=== PATIENT | male | born 1965 | race Caucasian/White ===

== ENCOUNTER 2025-09-18 13:17 | Outpatient (REF) | payer BC, SELFPAY ==
[2025-09-18 18:56] LABS: Alanine Aminotransferase 43 U/L (0-40); Albumin Level 4.8 g/dL (3.5-5.0); Alkaline Phosphatase 60 U/L (39-117); Anion Gap 15 (12-20); Aspartate Amino Transferase 33 U/L (5-37); Blood Urea Nitrogen 15 mg/dL (9-16); Calcium 8.9 mg/dL (8.4-10.2); Carbon Dioxide 28 mmol/L (22-29); Chloride 99 mmol/L (96-108); Cholesterol 179 mg/dL (<200); Estimated Glomerular Filt Rate > 60; HDL Cholesterol 36 mg/dL (>40); Potassium 3.5 mmol/L (3.3-5.1); Sodium 138 mmol/L (135-145); Total Protein 7.5 g/dL (6.5-8.0); Triglycerides 163 mg/dL (<150)
[2025-09-18 19:04] LABS: Folate 4.5 ng/mL (> or = 4.0); Vitamin B12 600 pg/mL (200-900)
== END 2025-09-18 13:18 | disposition home or self-care (01) ==
LOC: HO.WFDLDS 13:17
PROVIDERS: PCP Nurse Practitioner Family; Visit Provider Nurse Practitioner Family
DX: I10 Essential (primary) hypertension (principal); R68.2 Dry mouth, unspecified; E66.9 Obesity, unspecified; Q82.4 Ectodermal dysplasia (anhidrotic); Z09 Encounter for follow-up examination after completed treatment for conditions other than malignant neoplasm; Z76.89 Persons encountering health services in other specified circumstances; Z28.21 Immunization not carried out because of patient refusal; Z12.5 Encounter for screening for malignant neoplasm of prostate
CPT/HCPCS: 36415; 80053; 80061; 82306; 82607; 82746; 83036; 84153; 84443; 96127

== ENCOUNTER 2025-09-18 13:17 | Outpatient (AMB) | payer BC, SELFPAY ==
--- NOTE | 2025-09-18 13:24 | A.OFFPC_ITS ---
Vital Signs 09/18/25 13:39 09/18/25 14:11 Height 5 ft 10 in Weight 263 lb 8 oz BMI 37.8 BP 162/80 H 142/8 H Blood Pressure Location Rt brachial Rt brachial Position Sitting Sitting Respiration 14 Pulse 98 Pulse Source Pulse Oximeter Temp 97.2 F Temp Source Oral Pulse Oximetry (%) 96 Oxygen Delivery Method Room Air Intake Visit Reasons: ED follow up/ blood pressure Intake Note: New patient to establish care and ED follow up on htn Bulldozer Operator Required: No Allergies No Known Allergies Allergy (Verified 09/18/25 13:58) Medication List - Last Reviewed 09/18/25 by Stacia Mora MA amlodipine 5 mg PO DAILY hydrochlorothiazide 12.5 mg PO DAILY Tobacco use date assessed: 09/18/25 Dental Screening Dental Screen Date: 09/18/25 Did you have a dental visit in the last 12 months?: Yes Did you have a dental problem in the last 6 months where you did not have access to dental care?: No Was dental information given to patient?: Patient has dentist HPI HPI Comments History of Present Illness Details 60-year-old male with hypertension, obes ity, ectodermal dysplasia social: Surgery: ACL R Fhx: Mom CHF; Dad dementia, Brother bipolar; 2 children alive and well Health Maintenance: Colon PSA Tdap declined Flu declined Specialists: None History of Present Illness The patient is a 60-year-old male presenting to establish care and for management of hypertension. [facility] [place] last visit 2022 No records Essential Hypertension: - The patient has a history of hypertens ion and presented to the [facility] emergency room on July 27 for feeling off, where he was found to be hypertensive and mildly hypoxic. - His ER workup was negative, and he was discharged on amlodipine and hydrochlorothiazide. - He reports taking his medications as p rescribed, but his home blood pressure readings remain elevated in the 150s-160s over 90s. - The patient was previously on blood pr essure medication but stopped taking it due to issues with his prior primary care provider's office. - He was advised in the ER to follow up with a section hand helper, partly due to a concern for an enlarged heart on chest x-ray, though a section hand helper later disagreed with this finding; the patient is not interested in pursuing a cardiology consultation at this time. - The patient expresses a preference for a minimalist approach to medication but understands it is necessary to control his blood pressure. - The patient reports symptoms of dehydr ation, including dry lips and waking up at night with a dry mouth, since starting his new medications. - He denies feeling thirsty all the time . - He also reports a recent dry, tickly c ough with some congestion that has been improving over the last couple of weeks. 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 - Symptoms include having fewer sweat gl ands, less hair on his arms, excessive spacing of his teeth, and a predisposition to overheating. - He notes the condition's effects lesse n with each generation, and he did not pass it to his daughter. Past Medical History - Past Medical History: Hypertension, Ec todermal dysplasia (hereditary). - Hospitalizations/ER visits: Visited [facility] ER on July 27 for hypertension and mild hypoxia. - Past Surgical History: ACL reconstruct ion 35 years ago. - Family History: Father with dementia; mother from possible heart failure; brother with bipolar disorder; paternal grandfather with heart disease; cancer history in maternal grandparents and paternal grandmother. Review of Systems - General: Reports feeling fine. Denies pain. - HEENT: Reports dry lips, dry mouth, an d dry throat, particularly at night. - Respiratory: Reports a recent, improvi ng dry cough with some congestion. - Cardiovascular: Denies swelling in leg s. - Integumentary/Constitutional: Reports having fewer sweat glands, less hair, and a tendency to overheat due to a hereditary condition. Physical Exam General: Well developed, well nourished, in no acute distress. Appears stated age. Head: Normocephalic, atraumatic. Eyes: Pupils are equal, round and reactive to light and accommodation. Conjunctivae are clear. Vision grossly normal. Lungs: Clear to auscultation bilaterally. No rales, rhonchi or wheeze noted. Good air flow in all ivy. Heart: Regular rate and rhythm. No murmurs, click, rubs or gallops are noted. Musculoskeletal: Joints are nontender, without swelling, redness, or effusions. Pulses: Peripheral pulses are equal and palpable bilaterally. Extremities: No clubbing, cyanosis nor edema is noted. Psych: Mood and affect appropriate. Results - Labs: Laboratory results from the ER v isit on July 27 were fine. - Cardiac Tests: EKG from the ER visit w as good. - Imaging: Chest x-ray report from the E R was reviewed and deemed unlikely to show significant cardiac issues. Medical Decision Making The patient is a 60-year-old male establishing care, primarily for management of hypertension. Despite being on amlodipine and hydrochlorothiazide post-ER visit, his home blood pressures remain elevated, though his in-office recheck was improved at 142/80. He reports dry mouth, a potential side effect of hydrochlorothiazide, which is a diuretic. Given this symptom and the known risk of electrolyte imbalances with HCTZ, particularly hypokalemia, repeating his lab work is warranted before making medication adjustments. The goal is to avoid polypharmacy, such as prescribing potassium to counteract a medication side effect. Therefore, I will wait for lab results before refilling or changing his prescriptions; if his electrolytes are abnormal, the plan will be to discontinue the HCTZ. Amlodipine is unlikely to be causing his symptoms and will likely be continued. The patient will be instructed on proper home blood pressure monitoring to improve accuracy. We will schedule a follow-up visit in six weeks for a full wellness exam and to reassess his blood pressure management. Plan 1. Essential Hypertension - The patient's blood pressure remains e levated at home despite treatment with amlodipine and hydrochlorothiazide, though his office reading improved to 142/80. - Will obtain labs today to check for el ectrolyte abnormalities, a potential side effect of hydrochlorothiazide. - The plan for medication refills or jennifer nges is pending lab results, which are expected in 24 hours. - If labs show electrolyte disturbances, the hydrochlorothiazide may be discontinued. - The patient was instructed to monitor blood pressure once daily in the morning after resting for five minutes and to log the readings. - He will bring his home monitoring sy ce to the next visit for calibration. - A cardiology consultation was deferred per the patient's preference. 2. Dry mouth - The patient's symptom of dry mouth is a potential side effect of hydrochlorothiazide. - A basic metabolic panel was ordered to assess for dehydration or electrolyte abnormalities that could be causing these symptoms. - Management will be determined by lab r esults, with a possible discontinuation of hydrochlorothiazide. 3. Health Maintenance - The patient is establishing care. - A follow-up visit is scheduled in [facility] six weeks for a wellness exam, which will include discussing preventative screenings such as a colonoscopy. - The patient declined a tetanus/Tdap va ccination & Flu shot . Patient Instructions - Please have your blood drawn at the la b in our office today. - You will receive an email to sign up f or our patient portal. I will send you a message through the portal in about 24 hours with your lab results and updated medication plan. - Do not refill your current prescriptio ns yet, as we may change them. You have about a 30-day supply left. - Check your blood pressure once a day, in the morning. Before you check it, sit quietly for five minutes with your feet flat on the floor. Record only the first measurement. - Please bring your home blood pressure machine to your next visit. - Please schedule a follow-up appointmen t at the front office representative for a wellness exam in about six weeks. Consent The patient provided verbal consent to have blood work done today. The rationale for the labs, which is to check for electrolyte abnormalities related to his blood pressure medication, was explained. The patient understood and agreed to proceed. Patient was informed and verbally consented to the use of an ambient scribe for clinic note documentation during this visit. Total time spent caring for the patient today was 45 minutes. This includes time spent before the visit reviewing the chart, time spent during the visit, and time spent after the visit on documentation, reviewing laboratory results, diagnostic imaging, medications, performing a medically necessary evaluation, counseling on diagnoses, care coordination, ordering appropriate tests, ordering appropriate medications, review of tests performed by other providers, reporting test results with the patient, communication with other healthcare providers. [facility] Medical History (Updated 09/18/25 @ 14:21 by [facility] Cluster headaches HTN (hypertension) (~09/18/25) Surgical History (Updated 09/18/25 @ 13:43 by Stacia Mora MA) H/O right knee surgery Family History (Updated 09/18/25 @ 13:44 by Stacia Mora MA) Paternal Grandfather Cardiovascular disease Maternal Grandmother Cancer Paternal Grandmother Cancer Sister Mental health disorder Social History (Updated 09/18/25 @ 13:42 by Stacia Mora MA) Household Members: Spouse and Children Both parents involved: No Caregiver staying overnight: No Housing: House Are you a primary caregiver services home to a significant other at home: Yes Do you presently have visiting nurse or other home services: No 75 years or older and lives alone: No Alcohol intake: current Alcohol intake frequency: a few times a month Patient Tobacco Use Status: Never used Tobacco e-Cigarette/Vaping Use: Never Used Second Hand Smoke Exposure: No service: No Current occupational status: employed Current occupation: [employer] Cognitive needs: No Hearing needs: No Vision needs: No Questionnaire PHQ-9 Over the last 2 weeks, how often have you been bothered by any of the following problems? 1. Little interest or pleasure in doing things: not at all 2. Feeling down, depressed, or hopeless: not at all 3. Trouble falling or staying asleep, or sleeping too much: not at all 4. Feeling tired or having little energy: not at all 5. Poor appetite or overeating: not at all 6. Feeling bad about yourself - or that you are a failure or have let yourself or your family down: not at all 7. Trouble concentrating on things, such as reading the newspaper or watching television: not at all 8. Moving or speaking so slowly that other people could have noticed. Or the opposite - being so fidgety or restless that you have been moving around a lot more than usual: not at all 9. Thoughts that you would be better off or of hurting yourself in some way: not at all Total score: 0 Depression Screening Interpretation: Negative Depression Screening Done: Yes 57336 - PHQ-9 Billing: Yes Source: Developed by Drs. Manuelito Morin, Gale Hare, Obi Hamilton and colleagues, with an educational marlon from [employer]. Thrive Questionnaire Date Thrive assessed: 09/18/25 I am a: Patient What is your living situation today?: I have a steady place to live Within the past 12 months, did the food you bought not last and you didn't have the money to get more?: Never true Within the past 12 months, did you worry whether your food would run out before you got money to buy more?: Never true Do you have trouble paying for medicines?: No Do you have trouble getting transportation to medical appointments?: No Do you have trouble paying your heating and electricity bill?: I choose not to answer this question Do you have trouble taking care of your child, family member or friend?: No Do you have trouble with day-to-day activities such as bathing, preparing meals, shopping, managing finances, etc.?: No Are you currently unemployed and looking for a job?: No Are you interested in more education?: No Please select the resources that you would like help with: None Currently or been in a relationship where the following occur: No concerns reported THRIVE Score: 0 AUDIT C Alcohol Use Questionnaire (AUDIT-C) 1. How often do you have a drink containing alcohol?: Monthly or less 2. How many drinks containing alcohol do you have on a typical day when you are drinking?: 1 or 2 3. How often do you have six or more drinks on one occasion?: Never Total Score: 1 Score Reviewed/Action Taken: Yes DESIRAE-7 AMB Questionnaire DESIRAE-7 Date DESIRAE - 7 assessed: 09/18/25 Feeling nervous, anxious, or on edge: 0 = Not at all Not being able to stop or control worryin = Not at all Worrying too much about different things: 0 = Not at all Trouble relaxin = Not at all Being so restless that it is hard to sit still: 0 = Not at all Becoming easily annoyed or irritable: 0 = Not at all Feeling afraid as if something awful might happen: 0 = Not at all Total DESIRAE-7 score (0-4 normal; 5-9 mild; 10-14 moderate; 15-21 severe): 0 Source: Developed by Drs. Manuelito Morin, Gale Hare, Obi Hamilton and colleagues, with an educational marlon from [employer]. DESIRAE-7 Assessment Billing DESIRAE-7 Assessment Tool: DESIRAE-7 Assessment 38695 Physical exam (Primary Care) Vital Signs: Last Vital Signs Temp 97.2 F 09/18/25 13:39 Pulse 98 09/18/25 13:39 Resp 14 09/18/25 13:39 BP 162/80 H 09/18/25 13:39 Pulse Ox 96 09/18/25 13:39 Oxygen Delivery Method Room Air 09/18/25 13:39 BMI result Body Mass Index 37.8 BMI Assessment/Plan discussion: High BMI High, discussed plan: lifestyle Tobacco/Smoking Status: Tobacco use Status Tobacco use date assessed 09/18/25 09/18/25 13:37 Patient Tobacco Use Status Never used Tobacco 09/18/25 13:42 e-Cigarette/Vaping Use Never Used 09/18/25 13:42 PHQ-9: PHQ-9 Score PHQ-9: Total score 0 09/18/25 13:53 Depression Screening Interpretation: Negative Thrive Assessment: Date of Thrive Assessment Date Thrive assessed 09/18/25 09/18/25 13:27 Currently or been in a relationship where the following occur: No concerns reported Coding Level of Care Code New Pt Level 4 (27171) Complex EM visit Add On G2211 Diagnoses Encounter to establish care Z76.89 Hospital discharge follow-up Z09 HTN (hypertension) I10 Obesity (BMI 30-39.9) E66.9 Dry mouth R68.2 Ectodermal dysplasia Q82.4 Influenza vaccination declined Z28.21 Tetanus, diphtheria, and acellular pertussis (Tdap) vaccination declined Z28.21 Additional Codes DESIRAE-7 Assessment Billing - DESIRAE-7 Assessment Tool: DESIRAE-7 Assessment 11424 ([id number]) PHQ-9 - 89713 - PHQ-9 Billing: Yes ([id number]) Assessment & Plan Assessment & Plan (1) Encounter to establish care: Code(s): Z76.89 - Persons encountering health services in other specified circumstances (2) Hospital discharge follow-up: Code(s): Z09 - Encounter for follow-up examination after completed treatment for conditions other than malignant neoplasm (3) HTN (hypertension): Onset Date: ~09/18/25 Code(s): I10 - Essential (primary) hypertension Category: Medical (4) Obesity (BMI 30-39.9): Code(s): E66.9 - Obesity, unspecified Category: Medical (5) Dry mouth: Code(s): R68.2 - Dry mouth, unspecified Category: Medical (6) Ectodermal dysplasia: Code(s): Q82.4 - Ectodermal dysplasia (anhidrotic) Category: Medical (7) Influenza vaccination declined: Onset Date: ~09/18/25 Code(s): Z28.21 - Immunization not carried out because of patient refusal Category: Medical (8) Tetanus, diphtheria, and acellular pertussis (Tdap) vaccination declined: Onset Date: ~09/18/25 Code(s): Z28.21 - Immunization not carried out because of patient refusal Category: Medical Plan . Orders: Orders Comprehensive Met. Panel Today E66.9 - Obesity, unspecified, I10 - Essential (primary) hypertension, R68.2 - Dry mouth, unspecified Hemoglobin A1c Today E66.9 - Obesity, unspecified, I10 - Essential (primary) hypertension, R68.2 - Dry mouth, unspecified TSH reflex Free T4 Today E66.9 - Obesity, unspecified, I10 - Essential (primary) hypertension, R68.2 - Dry mouth, unspecified Vitamin B12 and Folate Today E66.9 - Obesity, unspecified, I10 - Essential (primary) hypertension, R68.2 - Dry mouth, unspecified Lipid Panel Today E66.9 - Obesity, unspecified, I10 - Essential (primary) hypertension, R68.2 - Dry mouth, unspecified Microalbumin, Random (w Creat) Today E66.9 - Obesity, unspecified, I10 - Essential (primary) hypertension, R68.2 - Dry mouth, unspecified Prostate Specific Antigen Scr Today E66.9 - Obesity, unspecified, I10 - Essential (primary) hypertension, R68.2 - Dry mouth, unspecified Vitamin D 25-OH Total Today E66.9 - Obesity, unspecified, I10 - Essential (primary) hypertension, R68.2 - Dry mouth, unspecified Patient Instructions: Walk-In Care (Urgent Care): We Make it Easy Walk-in for urgent medical issues such as: ? Seasonal Allergies ? Insect Bites ? Cough ? Diarrhea ? Acute Asthma Attacks ? Back, Knee or Joint Pain ? Ear Infection ? Fever without a Rash ? Headaches ? Nausea ? [place] Eye, Rash or Skin Irritation ? Sore Throat ? Sports Physicals ? Vomiting Most insurances are accepted. Patients do not need to be part of the [facility] to seek care at the walk-in clinic. Locations [address], [place] Open Wednesday through Wednesday 8am-5pm *Hours may vary due to staffing availability. To confirm Walk-In Care hours please call. [facility] [place] [place] [address] ? [phone] [facility] Walk-In Care in [place] provides services to ages 18 and over. Open Wednesday-Wednesday: 7 a.m. to 5 p.m. and Wednesday: 9 a.m. to 3 p.m.* *Hours may vary due to staffing availability. To confirm Walk-In Care hours in [place], please call [phone]. [address] [place] [address] ? [phone] [facility] Walk-In Care in [place] provides services to ages 12 and over. Open Wednesday-Wednesday: 8 a.m. to 5 p.m. Hours may vary due to staffing availability. To confirm Walk-In Care hours in [place], please call [phone]. LABORATORY SERVICES: [facility] ? Primary Location [address] [place] [address] Wednesday through Wednesday 6:00 AM ? 5:00 PM Wednesday 7:00 AM ? 11:00 AM* [phone] The [facility] is centrally located near the front entrance of the [facility] for easy outpatient access. Convenient parking is provided for outpatients. *Hours may vary due to staffing availability. To confirm Laboratory hours for any location, please call [phone]. Offsite Location For your convenience, we offer offsite laboratory draw stations at the following locations: [address] [place] [address] ? [address], [address] Wednesday through Wednesday 7:30 AM ? 1:00 PM* [phone] *Hours may vary due to staffing availability. To confirm Laboratory hours for any location, please call [phone]. [place] ? [address] Wednesday through Wednesday 6:00 AM ? 3:30 PM* Wednesday 6:30 AM ? 3 PM* [phone] *Hours may vary due to staffing availability. To confirm Laboratory hours for any location, please call [phone] [place] [address] Wednesday through Wednesday 7:30 AM ? 4:00 PM* [phone] *Hours may vary due to staffing availability. To confirm Laboratory hours for any location, please call [phone]. [facility] Wednesday through 9:00 AM ? 4:00 PM* *Hours may vary due to staffing availability. To confirm Laboratory hours for any location, please call [phone]. Appointments are not necessary. Walk-ins are welcome. Like all the departments throughout the [facility], our Lab undergoes frequent reviews to ensure the quality and accuracy of test results, and our staff takes special pride in its status as a nationally accredited facility. Patient Portal: [facility] ONE PATIENT. ONE RECORD. BETTER CARE. [facility] has a fully integrated, cutting- edge mobile electronic health information system that has revolutionized the way we care for our patients and manage our organization. This system improves communication and coordination enabling us to provide safe, higher-quality care, and an overall positive experience for staff and patients. Our first priority, as always, is to deliver the highest quality care possible. The system is running in the background supporting that priority. This portal is for all [facility] services and practices. If you are experiencing any technical difficulties with enrolling or logging into the Patient Portal please complete the [facility] Patient Portal Technical Support Form. [facility] now offers a new secure on-line interactive tool for patients to review their health information ? ?Patient Portal. This interactive web portal will enable patients and their families to take an active role in their care by providing easy, secure access to their health information via the internet. The Patient Portal provides patients with instant access to their health information, including laboratory results, medications, allergies, demographic information, visit history, and more. In addition to managing their own care, parents and health care proxies with authorized consent will appreciate the ability to access the records of those individuals for whom they provide care. Please note: if you wish to gain access (Proxy) to another patient?s portal, you will be required to come to the Medical Records Department in person at [facility]. Both the patient giving proxy access and the proxy will need to provide photo identification and complete the appropriate authorization. The Patient Portal also allows track their appointments online. The [facility] Patient Portal also saves patients time by allowing them to submit updates to their demographic and contact information prior to their visits. Portal email notifications will also alert patients to any new activity on their portal, such as test results and new appointments. In order to initially enroll in the [facility] Patient Portal, you will need to enter some required information including the following: * your [facility] Medical Record number * your personal home email address * name * date of Please note: In order to enroll in the [facility] Patient Portal, we need to have your email address on file in your electronic medical record. ?The email address needs to be specific for one person (yourself) in order for your Portal enrollment to be successful. ?You can update your email address in person with our Registration staff when you are registering for a hospital visit. ?Otherwise, you will need to come to the Health Information Management (Medical Records) Department at [facility]. ?We are open from Wednesday ? Wednesday from 7:30 a.m. ? 4:30 p.m. ?You will be required to present a photo id. Once you have successfully enrolled in the Patient Portal, you will receive a one-time user id and password for the Portal, sent to your email address. ?This will allow you to log into the Patient Portal within 99 hrs and reset your own logon id and password, and define personal security questions. ?Once your perman ent login and password have been set, you can log into the [facility] Patient Portal at any time via the blue button above or from the Portal Logon button on any page of the [facility] website. [facility] and [facility] encourage all of our patients to enroll in Patient Portal as it presents a valuable opportunity for patients and their families to actively participate in their care and stay healthy Welcome to [facility]. ?We look forward to working with you.
[2025-09-18 13:39] VITALS: BP 162/80; PULSE 98; RESP 14; TEMP 36.2; O2SAT 96; BMI 37.8
[2025-09-18 14:11] VITALS: BP 142/8
--- OUTSIDE RECORDS SUMMARY | 2025-09-18 17:02 | XMS_ITS | Clinical Summary ---
Author Organization [facility] Address [address] [place] [address] Care Team Providers Care Senior Java [email or web address] Developer Name Role Phone Unavailable Primary Care Provider Unavailabl e Social History Tobacco Use Types Packs/Day Years Used Date Smoking Tobacco: Never Assessed Sex and Gender Information Value Date Recorded Sex Assigned at Not on file Gender Identity Not on file Sexual Orientation Not on file Plan of Treatment Not on file VonnieElmer Personal/Family Self 1965 [address] [place] [address]
--- OUTSIDE RECORDS SUMMARY | 2025-09-18 17:02 | XMS_ITS ---
Author Name [facility] Organization Unknown History of Medication Use Medication Directions Dispensed Refills Start Date End Date Status hydroCHLOROthiazide 25 MG Oral Tablet hydroCHLOROthiazide 25 MG Oral TabletTAKE 1 TABLET BY MOUTH EVERY DAY Quantity: 7 Refills: 0Milo Gonzalez Start : [id number] 022 completed Losartan Potassium 100 MG Oral Tablet Losartan Potassium 100 MG Oral TabletTAKE 1 TABLET BY MOUTH EVERY DAY Quantity: 90 Refills: Leela Luis, Onyinyechukwu Start : [id number] 019 completed Aspirin EC 81 MG Oral Tablet Delayed Release Aspirin EC 81 MG Oral Tablet Delayed ReleaseTAKE 1 TABLET Every other day Refills: Samir Humphrey M.D. Start : [id number]-[id number] 017 completed Aspirin EC 81 MG TBEC Aspirin EC 81 MG TBECTAKE 1 TABLET Every other day Refills: Samir Humphrey M.D. Start : [id number] 017 completed Metoprolol Succinate ER 50 MG Oral Tablet Extended Release 24 Hour Metoprolol Succinate ER 50 MG Oral Tablet Extended Release 24 HourTAKE 1 TABLET BY MOUTH EVERY DAY Quantity: 7 Refills: Ignacio Price M.D.nyechukwcordell Start : [id number] 017 completed Medication Administration not documented Medication Administration not documented completed Immunizations Vaccine Date Source Lot Number Status Fluzone Quadrivalent 0.5 ML Intramuscular Suspension Prefilled Syringe 10/22/2020 [facility] [id number] com pleted Fluzone Quadrivalent 0.5 ML Intramuscular Suspension Prefilled Syringe 10/12/2019 [facility] [id number] com pleted Fluzone Quadrivalent 0.5 ML Intramuscular Suspension Prefilled Syringe 10/07/2018 [facility] [id number] com pleted Fluzone Quadrivalent 0.5 ML Intramuscular Suspension Prefilled Syringe 10/06/2017 [facility] [id number] com pleted Fluzone Quadrivalent 0.5 ML Intramuscular Suspension Prefilled Syringe 09/29/2016 [facility] [id number] com pleted Influenza 08/21/2015 [facility] [id number] completed Care Team Organization Name Specialty Phone Email Start Date End Da [facility]nel [facility] 01/09/2022 11/12/2022
== END 2025-09-18 14:18 | disposition home or self-care (01) ==
LOC: HO.HMCFM 13:19
PROVIDERS: PCP Nurse Practitioner Family; Visit Provider Nurse Practitioner Family
DX: I10 Essential (primary) hypertension (principal); E66.9 Obesity, unspecified; Z68.37 Body mass index [BMI] 37.0-37.9, adult; R68.2 Dry mouth, unspecified; Q82.4 Ectodermal dysplasia (anhidrotic); Z09 Encounter for follow-up examination after completed treatment for conditions other than malignant neoplasm; Z28.21 Immunization not carried out because of patient refusal